=== PATIENT | male | born 1990 | race Two or more races ===

== ENCOUNTER → 2024-09-08 | Emergency (ER) | payer OTHER ==
[~2024-09-08] VITALS: Ht 172.7 cm; Wt 147.4 kg
[~2024-09-08] MED LIST: ACETAMINOPHEN 500 MG GEL..CAP PO ONE; AMOX1TAB5 PO; DEXAMETHASONE SODIUM PHOSPHATE 4 MG/ML VIAL IM STA; GRALISE600 MG PO; INFLIXIMAB {1, null}; NEURONTIN300 MG PO; ORPHENADRINE CITRATE 30 MG/ML AMPUL IM STA
[2024-09-08 16:18] VITALS: BP 113/83; O2SAT 99
== END | disposition home or self-care (01) ==
LOC: ER 15:24
DX: L73.2 Hidradenitis suppurativa (principal); Z91.013 Allergy to seafood
CPT/HCPCS: 96372; 99282; J1100; J2360